=== PATIENT | female | born 1955 | race Caucasian/White ===

== ENCOUNTER 2019-12-27 18:06 | Emergency (ER) | payer MEDICAID, OTHER ==
[~2019-12-27] VITALS: Ht 152.4 cm; Wt 61.2 kg
[~2019-12-27 18:06] MED LIST: ACET-73 PO; AMOX500C2 PO; CHLO4TAB36 PO; FLUT16SP16 NS; GLIP5TAB26 PO; HYDR-3698 PO; LORA10TA7 PO; LOSA50TA3 PO; METF1000 PO; NAPR-690 PO; OMEP40CA13 PO; RANI-362 PO; [UNRECOGNIZED DRUG - CODE] OP
[2019-12-27 18:15] VITALS: BP_SYST 159
[2019-12-27] MEDS ORDERED: NS 250 ML IV ONE (18:45)
[2019-12-27] MEDS ORDERED: PANTOPRAZOLE SODIUM 40 MG/VIAL (PROTONIX) IVP ONE (18:45)
[2019-12-27 19:21] VITALS: BP_SYST 152
== END 2019-12-27 19:21 | disposition home or self-care (01) ==
LOC: SED 18:06
DX: K21.9 Gastro-esophageal reflux disease without esophagitis (principal); I10 Essential (primary) hypertension; E11.9 Type 2 diabetes mellitus without complications; Z79.899 Other long term (current) drug therapy
CPT/HCPCS: 96361; 96374; 99283; C9113; J7050

== ENCOUNTER 2019-12-29 08:00 | Emergency (ER) | payer OTHER ==
[~2019-12-29] VITALS: Ht 149.9 cm; Wt 53.5 kg
[2019-12-29 08:17] VITALS: BP_SYST 150
[2019-12-29] MEDS ORDERED: MAG-AL HYDROX/SIMETH 30 ML UDC PO ONE (08:30)
[2019-12-29] MEDS ORDERED: FAMOTIDINE 20 MG TABLET PO ONE (08:30)
[2019-12-29 08:50] LABS: LYMPHOCYTES # (AUTO) 0.6 K/uL (1.0-5.5); MONOCYTES # (AUTO) 0.3 K/uL (0.0-1.0); NEUTROPHILS # (AUTO) 3.8 K/uL (1.8-7.7); PLATELET COUNT (AUTO) 84 K/uL (130-430); WHITE BLOOD COUNT (AUTO) 4.8 K/uL (4.8-10.8)
[2019-12-29 09:02] LABS: ANION GAP 10 (5-15); CALCIUM 8.7 mg/dL (8.4-11.0); CHLORIDE 105 mmol/L (98-107); CREATININE 0.53 mg/dL (0.55-1.30); GLUCOSE 105 mg/dL (70-99); POTASSIUM 3.5 mmol/L (3.5-5.1); SODIUM SERUM 141 mmol/L (136-145); UREA NITROGEN, BLOOD 13 mg/dL (8-21)
[2019-12-29 09:03] LABS: GFR AFRICAN AMERICAN 148 mL/min (>90)
[2019-12-29 09:07] LABS: BASOPHILS % (AUTO) 0.4 % (0.0-2.0); EOSINOPHILS % (AUTO) 0.9 % (0.0-4.0); HEMATOCRIT 34.6 % (36-48); HEMOGLOBIN 11.7 g/dL (12.0-16.0); LYMPHOCYTES % (AUTO) 12.6 % (20.5-51.5); MEAN CORPUSCULAR HEMOGLOBIN 31 pg (27-31); MEAN CORPUSCULAR HGB CONC 34 % (32-36); MEAN CORPUSCULAR VOLUME 90 fL (79.0-98.0); MONOCYTES % (AUTO) 5.7 % (1.7-9.3); NEUTROPHILS % (AUTO) 80.4 % (40.0-70.0); RED BLOOD CELL COUNT(AUTO) 3.82 MIL/uL (4.2-6.2); RED CELL DISTRIBUTION WIDTH 12.2 % (9.0-15.0)
[2019-12-29 09:10] LABS: ALANINE AMINOTRANSFERASE 20 U/L (12-78); ALBUMIN 3.5 g/dL (3.4-4.8); ASPARTATE AMINOTRANSFERASE 22 U/L (10-37); LIPASE 72 U/L (73-393); TOTAL BILIRUBIN 0.9 mg/dL (0.0-1.0)
[2019-12-29 09:59] VITALS: BP_SYST 150
== END 2019-12-29 09:59 | disposition home or self-care (01) ==
LOC: SED 08:00
DX: R04.2 Hemoptysis (principal); I10 Essential (primary) hypertension; E11.9 Type 2 diabetes mellitus without complications; Z79.899 Other long term (current) drug therapy
CPT/HCPCS: 36415; 71045; 80053; 83690-TC; 84484; 85025; 93005; 99285